=== PATIENT | female | born 1930 | race Caucasian/White ===

== ENCOUNTER 2017-08-20 17:07 | Emergency (ER) | payer OTHER ==
[~2017-08-20] VITALS: Ht 160 cm; Wt 68.0 kg
[2017-08-20 21:25] VITALS: BP 120/68
== END 2017-08-20 21:36 ==
LOC: ER 17:07
DX: R40.4 Transient alteration of awareness (principal); W05.0XXA Fall from non-moving wheelchair, initial encounter; Y93.89 Activity, other specified; Y92.89 Other specified places as the place of occurrence of the external cause; Y99.8 Other external cause status